=== PATIENT | female | born 1975 | race African-American/Black ===

== ENCOUNTER 2018-04-21 06:29 | Observation (INO) ==
[2018-04-21] MEDS ORDERED: Metoprolol Tartrate 25 MG Tablet PO SCH (07:30)
[2018-04-21] MEDS ORDERED: ceFAZolin 2 GM Premix Inj 2 GM/50 ML PIGGYBACK IV.SIG PRN (07:30)
[2018-04-21] MEDS ORDERED: Chlorhexidine Gluconate 2% 1 Pack (2 Cloths) TOPICAL SCH (07:30)
[2018-04-21] MEDS ORDERED: Lidocaine 1%/Epinephrine 1:100,000 Inj 20 ML Vial ONE (07:43)
[2018-04-21] MEDS ORDERED: Estrogens Congugated Vag Cream w/app 30 GM Tube VAGINAL ONE (07:44)
[2018-04-21] MEDS ORDERED: Sodium Chlor 0.9% Inj 500 ML IV.SIG SCH (08:00)
[2018-04-21] MEDS ORDERED: Gabapentin 300 MG Capsule PO ONE (08:00)
[2018-04-21] MEDS ORDERED: Lidocaine 1%/Epinephrine 1:100,000 Inj 30 ML Vial ONE (09:09)
[2018-04-21] MEDS ORDERED: Naloxone Inj 0.4 MG/ML Vial ONE (10:00)
[2018-04-21] MEDS ORDERED: Morphine Sulfate Inj 8 MG/ML Vial IV.PUSH PRN (10:10)
[2018-04-21] MEDS ORDERED: Acetaminophen 325 MG Tablet PO PRN (10:10)
[2018-04-21] MEDS ORDERED: Senna/Docusate Sodium 8.6/50 MG Tablet PO PRN (10:10)
[2018-04-21] MEDS ORDERED: Simethicone 80 MG Chew Tablet PO PRN (10:10)
[2018-04-21] MEDS ORDERED: fentaNYL Citrate Inj 100 MCG/2 ML Ampul ONE ×2 (10:33)
--- NOTE | 2018-04-21 10:43 | P.OP ---
Date of procedure: 04/21/18 Surgeon: Darnell Schwartz MD Operation and Findings: Preoperative diagnosis: 1. Heavy menstrual bleeding 2. Fibroid 3. Anemia Postop diagnosis 1. Same as above status post total vaginal hysterectomy Procedure 1. Total vaginal hysterectomy Surgeon Dr. Darnell Schwartz Business Analyst Consultant: [facility] surgical scrub staff Findings: 1. Normal external female genitalia vagina and cervix 2. Normal-appearing uterus, normal-appearing left ovary, nonvisualized right ovary, nonvisualized fallopian tubes bilaterally Anesthesia: General endotracheal Specimen: Uterus and cervix to pathology, routine Estimated blood loss: 100 cc Fluid replacement: 1 L lactated Ringer's Urine output: 150 cc clear Via Garay DVT prophylaxis: Sequential compression devices throughout the case Antibiotics: 2 g Ancef preoperatively Medications: 1 g IV Tylenol and 600 mg p.o. gabapentin preoperatively, 30 mg IV Toradol at the end of the procedure. Counts: correct x2 Time out done: yes Disposition: Stable to PACU then to the floor Indications: This patient is a 43-year-old -[place] female who was seen in outpatient setting with complaints of heavy menstrual bleeding and a history of anemia and was counseled on her options, she elected to pursue a hysterectomy, please see H&P and consents for further details. Description of procedure: The patient was taken to the operating room placed under general anesthesia, she was positioned in lithotomy position in candycane stirrups, the perineum and vagina were prepped and draped in sterile fashion, a Garay was inserted and the bladder was allowed to drain and the Garay was clamped for the remainder of the case. A weighted speculum was placed posteriorly and a Kingston anteriorly. A tenaculum was used to grasp the cervix and at the cervico vaginal junction 1% lidocaine with epinephrine was used circumferentially for anesthesia and hydro-dissection, approximately 15 cc were used. A circumferential incision was made around the cervico-vaginal junction at the area where the lidocaine was injected and with blunt dissection the vaginal mucosa was pushed cephalad away from the cervix, the posterior cul-de- sac had been entered incidentally with during the digital dissection. A long weighted speculum was placed posteriorly, the uterosacrals were clamped with a Heany and transected then transfixed with 0 Vicryl bilaterally. The anterior cul-de-sac was entered sharply with Magana scissors, a Kingston was placed anteriorly. Using the LigaSure impact bipolar device the uterines arteries, cardinal ligament, round ligament up through the broad and uterine ovarian ligaments were clamped desiccated and transected on both sides. The uterus was free and removed from the field. The surgical field was irrigated and there is no bleeding other than at the cuff. The anterior and posterior peritoneum were tagged to the vaginal mucosa. The posterior cuff was ran and locked with 0 Vicryl. Then the cuff was closed with running unlocked 0 Vicryl incorporating the uterosacrals bilaterally for support. The vagina was irrigated, the cuff was found to be hemostatic and the Garay was removed. The patient was awoken from anesthesia and transferred to PACU in stable condition.
[2018-04-21] MEDS ORDERED: HYDROmorphone PF Inj 2 MG/ML Vial ONE (11:56)
[2018-04-21] MEDS ORDERED: Ketorolac Inj 30 MG/ML (IVP) Vial IV.PUSH ONE (12:00)
[2018-04-21] MEDS ORDERED: Glycopyrrolate Inj 1 MG/5 ML Syringe IV.PUSH ONE (12:00)
[2018-04-21] MEDS ORDERED: Lidocaine PF 1% Inj 5 ML Syringe INFILTRATN ONE (12:00)
[2018-04-21] MEDS ORDERED: Neostigmine Inj 5 MG/5 ML Syringe IV.PUSH ONE (12:00)
[2018-04-21] MEDS: Ketorolac Inj 30 MG/ML (IVP) Vial IV.PUSH SCH ×2 (16:15→20:41)
[2018-04-21] MEDS: Morphine Inj 4 MG/ML Vial IV.PUSH PRN (21:41)
[2018-04-22] MEDS: Morphine Inj 4 MG/ML Vial IV.PUSH PRN (02:11)
[2018-04-22] MEDS: Ketorolac Inj 30 MG/ML (IVP) Vial IV.PUSH SCH ×3 (03:37→13:30)
[2018-04-22 04:12] LABS: Baso % (Auto) 0.3 % (0.0-2.0); Eos % (Auto) 0.1 % (0.0-4.0); Hematocrit 36.2 % (35.0-46.0); Hemoglobin 12.1 gm/dL (11.6-15.3); Lymph # (Auto) 1.2 th/mm3 (1.0-4.8); Lymph % (Auto) 11.6 % (9.0-44.0); Mean Corpuscular HGB Conc 33.5 % (32.0-36.0); Mean Corpuscular Hemoglobin 32.8 pg (27.0-34.0); Mean Corpuscular Volume 97.7 fL (80.0-100.0); Mean Platelet Volume 8.4 fL (7.0-11.0); Mono # (Auto) 0.7 th/mm3 (0.0-0.9); Mono % (Auto) 6.7 % (0.0-8.0); Neut # (Auto) 8.1 th/mm3 (1.8-7.7); Neut % (Auto) 81.3 % (16.0-70.0); Platelet Count 285 th/mm3 (150-450); Red Blood Count 3.71 mil/mm3 (4.00-5.30)
--- NOTE | 2018-04-22 07:22 | P.PN ---
Subjective Interval history: Doing well, ambulating, voiding without difficulty, tolerating a regular diet with no nausea or vomiting. Pain is improving, controlled with oral medication only overnight and this morning. Physical Exam Vital signs: Vital Signs 04/21/18 08:15 04/21/18 10:25 04/21/18 10:30 Temperature 97.8 F 97.5 F L Pulse Rate 86 94 H 86 Respiratory Rate 16 16 16 Blood Pressure 122/69 119/61 119/61 Pulse Oximetry 99 97 96 04/21/18 10:45 04/21/18 11:00 04/21/18 11:30 Temperature Pulse Rate 76 68 74 Respiratory Rate 16 16 16 Blood Pressure 123/74 132/75 137/66 Pulse Oximetry 04/21/18 12:20 04/21/18 19:30 04/22/18 00:17 Temperature 98.0 F 97.7 F 97.7 F Pulse Rate 80 85 70 Respiratory Rate 18 14 16 Blood Pressure 129/74 126/79 114/55 L Pulse Oximetry 98 100 04/22/18 03:41 Temperature 97.8 F Pulse Rate 71 Respiratory Rate 16 Blood Pressure 98/59 L Pulse Oximetry Intake & Output 04/21/18 04/22/18 04/22/18 18:59 06:59 18:59 Intake Total 2200 / 2200 Output Total 1050 / 1050 Balance 1150 / 1150 Weight 76.9 kg Intake: IV 1000 / 1000 LR 1000 mL Inj 1,000 ML @ 125 1000 / 1000 mls/hr IV.CONT .Q8H [facility] Rx#: [id number] Anesthesia Amount 1200 / 1200 Output: Urine 800 / 800 Estimated Blood Loss 100 / 100 Urine Amount (Catheter) 150 / 150 Indwelling Urethral Catheter 150 / 150 Other: # Voids 1 Weight On Admission 76.9 kg - Routine Respiratory Exam Present: CTA bilaterally - Routine Cardiovascular Exam Present: RRR - Detailed Abdominal Exam Comments: Abdomen soft, nontender, nondistended, bowel sounds present - Routine Skin Exam Present: intact - Routine Neurological Exam Present: alert, oriented X3 - Routine Psychiatric Exam Present: normal affect - Urinary Catheter Management Indwelling Urethral Catheter Cath placed during this visit: no Urethral indwelling: No Results - Labs CBC & Chem 7: 04/22/18 03:43 Laboratory Results - last 24 hr 04/21/18 04/21/18 04/22/18 08:00 08:00 03:43 WBC 10.0 RBC 3.71 L Hgb 12.1 Hct 36.2 MCV 97.7 MCH 32.8 MCHC 33.5 RDW 13.0 Plt Count 285 MPV 8.4 Neut % (Auto) 81.3 H Lymph % (Auto) 11.6 Hudson % (Auto) 6.7 Eos % (Auto) 0.1 Baso % (Auto) 0.3 Neut # (Auto) 8.1 H Lymph # (Auto) 1.2 Hudson # (Auto) 0.7 Eos # (Auto) 0.0 Baso # (Auto) 0.0 WBC Differential . Differential Comment Auto diff final Beta HCG, Quant Less than 1 Blood Type AB Positive Blood Type Recheck Not needed Antibody Screen Negative Assessment and Plan - Plan 43-year-old 002 -[place] female status post TVH for heavy menstrual bleeding and anemia. 1. Postoperative day #1: Afebrile, vital signs stable, output appropriate. A.m. CBC noted and appropriate for EBL. in addition to her prescribed Lortab 5/ 325 #15, wrote Rx for Dilaudid 4mg PO q6hr PRN breakthrough pain #10, 0 refills , rec her to take scheduled motrin and use lortab 1st for pain. Discussed post op precautions, expectations and follow up.
[2018-04-22] MEDS ORDERED: Ibuprofen 600 MG Tablet PO PRN (21:00)
== END 2018-04-22 13:45 | disposition home or self-care (01) ==
LOC: H1EA 06:29 → HSDC 06:29 → HSDI 06:29 → H1EA 12:09
PROVIDERS: ADMIT Obstetrics & Gynecology; ATTEND Obstetrics & Gynecology